=== PATIENT | male | born 2000 | race Caucasian/White ===

== ENCOUNTER 2021-01-18 00:11 | Emergency (ER) | payer SELFPAY ==
[2021-01-18 00:20] VITALS: BP 122/76; PULSE 81; RESP 16; TEMP 36.7; O2SAT 98; BMI 27.7
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
== END 2021-01-18 01:01 | disposition home or self-care (01) ==
PROVIDERS: Emergency Provider Internal Medicine
DX: S61.411A Laceration without foreign body of right hand, initial encounter (principal); W26.0XXA Contact with knife, initial encounter; Y93.89 Activity, other specified; Y92.030 Kitchen in apartment as the place of occurrence of the external cause; Y99.9 Unspecified external cause status
CPT/HCPCS: 12001; 99283